=== PATIENT | female | born 1935 | race Caucasian/White ===

== ENCOUNTER 2016-05-01 10:56 | Emergency (ER) | payer MEDICARE ==
[~2016-05-01] VITALS: Ht 162.6 cm; Wt 120.0 kg
[~2016-05-01 10:56] MED LIST changes: -LORA-404 PO
[2016-05-01] MEDS ORDERED: meTOprolol 5 MG/5 ML (LOPRESSOR) VIAL IV ONE ×4 (10:57→12:15)
[2016-05-01] MEDS ORDERED: ONDANSETRON 2 MG/ML (Z0FRAN) 2 ML VIAL IV ONE (11:00)
[2016-05-01] MEDS ORDERED: SODIUM CHLORIDE FLUSH 10 ML SYR IV PRN (11:00)
[2016-05-01] MEDS ORDERED: SODIUM CHLORIDE FLUSH 3 ML SYR IV PRN (11:00)
[2016-05-01] MEDS ORDERED: morphine INJ 4 MG/ML 1 ML SYRINGE IV PRN (11:00)
[2016-05-01] MEDS ORDERED: SODIUM CHLORIDE 250 ML IV PRN (11:00)
--- OUTSIDE RECORDS SUMMARY | 2016-05-01 11:00 | XMS REPORT | Continuity of Care Document ---
Author Author [facility] Address Unknown Phone Unavailable Care Team Providers Care Floor Supervisor Name Role Phone PRESLEY CHONG MD PCP [phone] Insurance Providers Payer Name Policy Number Subscriber Name Relationship Medicare A And B [id number] Chery Richard 20 Self / Same As Patient [employer] [id number] Chery Richard 20 Self / Same As Patient Advance Directives Directive Response Recorded Date/Time Advanced Directives No 12/08/15 4:54pm Other offered for Technical Publications Writer to visit 12/08/15 4:54pm Chief Complaint and Reason for Visit Chief Complaint DX:CHF Reason for Visit Heart failure Laceration of hand Medication adverse effect Weakness Problems Active Problems Medical Problem Onset Date Status Acute on chronic systolic (congestive) heart failure Unknown Acute Acute on chronic systolic (congestive) heart failure Unknown Acute Atrial fibrillation Unknown Acute Atrial fibrillation Unknown Acute Atrial fibrillation with RVR Unknown Acute Congestive heart failure Unknown Acute Diabetes mellitus Unknown Chronic Diabetes mellitus, type II Unknown Acute Heart failure Unknown Acute Hypoglycemia 04/13/2014 Acute Hypokalemia Unknown Acute LLQ pain 03/05/2012 Laceration of hand Unknown Resolved Medication adverse effect 04/13/2014 Acute Weakness Unknown Acute Medications Current Home Medications Medication Dose Units Route Directions Days/Qty Instructions Start Date Cholecalciferol (Vitamin D3) 1,000 Unit 1,000 Unit ORAL Daily@1200 03/09/12 Vit A,C & E/Lutein/Minerals 1 Each 1 Tab ORAL Daily@1200 04/13/14 Propranolol Hcl 40 Mg 40 Mg ORAL Twice A Day for Essential Tremor Multivitamin 1 Each 1 Tab ORAL Daily@1200 04/13/14 Calcium Carbonate/Vitamin D3 1 Each 1 Cap ORAL Daily@1200 04/13/14 Polyethylene Glycol 17 Gm 17 Gm ORAL Daily as needed for Constipation 04/13/14 Aspirin 81 Mg 81 Mg ORAL Daily 04/13/14 Loratadine 10 Mg 10 Mg ORAL Daily 11/02/15 Fluticasone Propionate 16 Gm 2 Sprays Each Nostril Daily 11/02/15 Ranitidine Hcl 300 Mg 300 Mg ORAL Daily@1400 11/02/15 Losartan Potassium (Cozaar) 25 Mg 25 Mg ORAL Daily 12/08/15 Senna 1 Ea 1 Tab ORAL Daily 12/08/15 Furosemide 40 Mg 40 Mg ORAL Bid@0800,1400 12/08/15 Diltiazem Hcl 180 Mg 180 Mg ORAL Twice A Day 60 12/08/15 Vitamin B Complex 1 Each 1 Cap ORAL Daily 12/08/15 Magnesium Hydroxide 400 Mg/5 Ml 30 Ml ORAL Daily as needed for Constipation 12/08/15 Potassium Chloride 10 Meq 20 Meq ORAL Twice A Day With Meals Dabigatran 150 Mg 150 Mg ORAL Twice A Day 60 12/14/15 Insulin Glargine,Hum.rec.anlog (Lantus) 100 Units/1 Ml 22 Unit SUBCUTANEOUS Twice A Day 1 12/14/15 Insulin Lispro (Insulin Humalog) 100 Unit/1 Ml 8 Unit SUBCUTANEOUS Three Times Daily With Meals 1 12/14/15 Past Home Medications Medication Directions Ordered Status Fexofenadine Hcl 180 Mg Tablet, 180 Mg Oral Bedtime 03/05/12 Discontinued Propranolol Hcl 40 Mg Tablet, 40 Mg Oral Twice A Day 03/05/12 Discontinued Clonazepam 1 Mg Tablet, 1 Mg Oral Bedtime as needed 03/05/12 Discontinued Meloxicam 15 Mg Tablet, 15 Mg Oral Daily 03/05/12 Discontinued Metformin Hcl 1,000 Mg Tab, 1000 Mg Oral Daily@1700 03/05/12 Discontinued Metformin Hcl 500 Mg Tablet, 1000 Mg Oral Daily@1700 03/05/12 Discontinued Sitagliptin Phosphate 100 Mg Tablet, 100 Mg Oral Daily@1700 03/05/12 Discontinued Vit A,C & E/Lutein/Minerals 1 Each Tablet, 1 Each Oral Daily 03/05/12 Discontinued Calcium Carbonate 500 Mg Tablet, 1000 Mg Oral Twice A Day With Meals Discontinued Glipizide 10 Mg Tab.er.24, 10 Mg Oral Twice Daily Before Meals 03/05/12 Discontinued Lansoprazole 15 Mg Capsule.dr, 15 Mg Oral Daily 03/05/12 Discontinued Aspirin 81 Mg Tab.chew, 81 Mg Oral Daily 03/05/12 Discontinued Clopidogrel Bisulfate 75 Mg Tablet, 75 Mg Oral Mo,We,Fr 03/05/12 Discontinued Senna 1 Ea Tablet, 1 Ea Oral Twice A Day 03/09/12 Discontinued Acetaminophen 325 Mg Tablet, 650 Mg Oral Every 4HRS as needed 03/09/12 Discontinued Insulin Glargine,Hum.rec.anlog 100 Unit/1 Ml Insuln.pen, 25 Unit Sub-Q Twice A Day 03/09/12 Discontinued Insulin Lispro 100 Unit/1 Ml Insuln.pen, 15 Unit Sub-Q Three Times A Day 08/04 Discontinued Loratadine 10 Mg Tablet, 10 Mg Oral Daily 03/09/12 Discontinued Insulin Aspart 100 Unit/1 Ml Insuln.pen, 15 Unit Sub-Q Three Times Daily With Meals 03/09/12 Discontinued Losartan Potassium (Cozaar) 25 Mg Tablet, 25 Mg Oral Daily 04/13/14 Discontinued Insulin Detemir (Insulin Levemir) 100 Unit/1 Ml Vial, 100 Unit Sub-Q Twice A Day 04/13/14 Discontinued Insulin Detemir (Insulin Levemir) 100 Unit/1 Ml Vial, 25 Unit Sub-Q Twice A Day 04/13/14 Discontinued Insulin Determir 1 Unit/0.01 Ml Soln, 25 Unit Subcutaneous Bedtime 04/13/14 Discontinued Insulin Aspart 100 Unit/1 Ml Vial, 5 Unit Sub-Q Three Times Daily With Meals 04/13/14 Discontinued Insulin Aspart 100 Unit/1 Ml Insuln.pen, 15 Unit Sub-Q Three Times Daily With Meals 11/02/15 Discontinued Guaifenesin 600 Mg Tablet.er, 600 Mg Oral Twice A Day as needed for Constipation 11/02/15 Discontinued Insulin Glargine,Hum.rec.anlog 100 Unit/1 Ml Insuln.pen, 25 Unit Subcutaneous Twice A Day 11/02/15 Discontinued Acetaminophen 325 Mg Tablet, 650 Mg Oral Every 6 Hours as needed for Pain Discontinued Dabigatran 150 Mg Capsule, 150 Mg Oral Twice A Day 11/06/15 Discontinued Diltiazem Hcl (Dilacor Xr) 180 Mg Cap.er.24h, 180 Mg Oral Daily 11/06/15 Discontinued Potassium Chloride 10 Meq Capsule.er, 10 Meq Oral Twice A Day With Meals Discontinued Calcium Carbonate 300 Mg Tab.chew, 600 Mg Oral Every 1 Hour as needed for Dyspepsia 11/06/15 Discontinued Simethicone (Mylicon) 80 Mg Tab.chew, 80 Mg Oral Four Times Daily as needed for Gas/Bloating 11/06/15 Discontinued Docusate Sodium 100 Mg Capsule, 100 Mg Oral Twice A Day as needed for Constipation 11/06/15 Discontinued Magnesium Hydroxide 400 Mg/5 Ml Oral.susp, 30 Ml Oral Twice A Day as needed for Constipation 11/06/15 Discontinued Insulin Glargine,Hum.rec.anlog (Lantus) 100 Units/1 Ml Vial, 30 Unit Subcutaneous Bedtime 11/06/15 Discontinued Insulin Lispro (Insulin Humalog) 100 Unit/1 Ml Vial, 10 Unit Subcutaneous Three Times Daily With Meals 11/06/15 Discontinued Furosemide 40 Mg Tablet, 40 Mg Oral Daily 11/06/15 Discontinued Mupirocin (Bactroban Ointment) 22 Gm Oint...g., 1 Applic Topical Daily Discontinued Losartan Potassium (Cozaar) 50 Mg Tablet, 0.5 Tab Oral Daily 12/08/15 Discontinued Insulin Aspart 100 Unit/1 Ml Insuln.pen, 15 Unit Sub-Q Three Times Daily With Meals 12/08/15 Discontinued Clopidogrel Bisulfate (Plavix) 75 Mg Tablet, 75 Mg Oral Daily 12/08/15 Discontinued Insulin Glargine,Hum.rec.anlog 100 Unit/1 Ml Vial, 25 Unit Subcutaneous Twice A Day 12/08/15 Discontinued Guaifenesin 600 Mg Tablet.er, 1200 Mg Oral Twice A Day 12/08/15 Discontinued Lansoprazole 30 Mg Capsule.dr, 30 Mg Oral Daily@1400 12/08/15 Discontinued Social History Social History Problem Response Recorded Date/Time Onset Date Status Exposure to occupational hazards No 12/08/2015 4:54pm Query Response Start Date Stop Date Smoking Status Never smoker Hospital Discharge Instructions Patient's Instructions Instructions Instructions You were admitted to the hospital for fluid overload and shortness of breath. You were placed back on fluid restrictions and a low sodium diet. You were also given diuretics. Your lost a lot of your excess fluid. You are being discharged on your home dose of furosemide/lasix, but you will need to continue with your fluid restriction and a low sodium diet. Your insulin dosing has been changed, your lanzoprazole has beens stopped. Your guaifenesin has been stopped. You have been started on dabigatran. There are samples of this at Dr. Chong's office if you need them. You are being sent home with home health to provide physical therapy, daily weights, CHF education, diet education and some help with medications. You have an appointment with Dr. Chong on Monday12.18.15 at 11am. Discharge Diet: Fluid restricted (Restrict to 1600ml/day), Salt (sodium) restricted Discharge Plan of Care Discharge Plan of Care #1 Problem: Low Salt Diet Goal: Limit salt intake Instructions for meeting goal: Please limit sodium and continue on a fluid restriction. Plan of Care Discharge Date 12/14/15 4:55pm Disposition 01 HOME OR SELF-CARE Prescriptions See Medication Section Referrals Dr. Chong ([facility]) - 12/18/15 Bautista Coronado (Home Health Services) - 12/15/15 Bautista Coronado (Physical Therapy Services) - Care Plan and Goals See Discharge Instructions Section Functional Status Query Response Date Recorded Activity Chair December 14, 2015 4:02pm Assistance Required Assistance of one December 11, 2015 3:00pm Level of Conscious Alert Oriented x4 December 14, 2015 8:43am Movement Moves extremities Weakness December 14, 2015 8:43am Allergies, Adverse Reactions, Alerts Allergen Type Severity Reaction Status Last Updated Sulfa (Sulfonamide Antibiotics) Allergy Unknown Active 11/08/15 Warfarin Allergy 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 Immunizations Name Given Type Status Date Pneumonia Vaccine Received if Current 03/07/12 Historical Historical Date Influenza Vaccine Received if Current 03/05/14 Historical Historical Vital Signs Acute Vital Signs Vital Response Date/Time Temperature (Fahrenheit) 98.0 12/14/2015 4:02pm Pulse 65 bpm 12/14/2015 4:02pm Respirations 20 12/14/2015 4:02pm Height 5 ft 4 in Weight 276 lb Body Mass Index 47.0 kg/m^2 Results Laboratory Results Test Name Result Units Flags Reference Collection Date/Time Result Date/ Time Comments Sodium Level 145 mmol/L 135-150 11/17/2015 3:41pm 11/17/2015 4:51pm Potassium Level 4.5 mmol/L 3.5-5.1 11/17/2015 3:41pm 11/17/2015 4:51pm Chloride Level 102 mmol/L 98-108 11/17/2015 3:41pm 11/17/2015 4:51pm Carbon Dioxide Level 28 mmol/L 22-29 11/17/2015 3:41pm 11/17/2015 4: 51pm Anion Gap 19.8 MEQ/L H 3-15 11/17/2015 3:41pm 11/17/2015 4:51pm Blood Urea Nitrogen 35 mg/dL # H 7-18 11/17/2015 3:41pm 11/17/2015 4: 51pm Creatinine 1.15 mg/dL 0.6-1.2 11/17/2015 3:41pm 11/17/2015 4:51pm BUN/Creatinine Ratio 30 H 10-20 11/17/2015 3:41pm 11/17/2015 4:51pm Estimat Glomerular Filtration Rate 55.2 11/17/2015 3:41pm 2015 4:51pm Estimated GFR (Non- 45.6 11/17/2015 3:41pm 2015 4:51pm Glucose Level 79 mg/dL # 70-110 11/17/2015 3:41pm 11/17/2015 4:51pm Calculated Osmolality 286 mosm/L 280-300 11/17/2015 3:41pm 11/17/2015 4 :51pm Calcium Level 10.1 mg/dL 8.8-10.8 11/17/2015 3:41pm 11/17/2015 4:51pm Calcium/Ionized Calcium Ratio 4.5 mg/dL 3.8-4.6 11/17/2015 3:41pm 11/16 4:51pm Magnesium Level 2.1 mg/dL 1.6-2.3 11/17/2015 3:41pm 11/17/2015 4:51pm Total Bilirubin 0.4 mg/dL 0.1-1.0 11/17/2015 3:41pm 11/17/2015 4:51pm Alkaline Phosphatase 93 U/L 38-126 11/17/2015 3:41pm 11/17/2015 4:51pm Aspartate Amino Transf (AST/SGOT) 20 U/L 15-37 11/17/2015 3:41pm 2015 4:51pm Alanine Aminotransferase (ALT/SGPT) 20 U/L L 30-65 11/17/2015 3:41pm 4:51pm GH-Djv-K-Type Natriuretic Peptide 1060 pg/mL H 0-450 11/17/2015 3:41pm 11/17/2015 4:51pm <300 ng/mL - HF unlikely Age <50 years, NT-proBNP >450 pg/mL - HF Likely Age 50-75 yrs, NT-proBNP >900 pg/mL - HF Likely Age >75 yrs, NT-proBNP >1800 - HF likely Total Protein 6.9 g/dL 6.4-8.5 11/17/2015 3:41pm 11/17/2015 4:51pm Albumin 3.9 g/dL 3.4-5.0 11/17/2015 3:41pm 11/17/2015 4:51pm Albumin/Globulin Ratio 1.300 1.1-1.8 11/17/2015 3:41pm 11/17/2015 4: 51pm Pending Laboratory Results Test Name Collection Date/Time Procedures Procedure Status Date Provider(s) ROUTINE VENIPUNCTURE Completed 11/17/15 CHEST X-RAY 2VW FRONTAL&LATL Completed 11/17/15 COMPREHEN METABOLIC PANEL Completed 11/17/15 ASSAY OF MAGNESIUM Completed 11/17/15 ASSAY OF NATRIURETIC PEPTIDE Completed 11/17/15 PULMONARY STRESS TEST/SIMPLE Completed 11/17/15 LOWER EXTREMITY STUDY Completed 12/07/15 Encounters Encounter Location Arrival/Admit Date Discharge/Depart Date Attending Provider Discharged Inpatient [facility] 12/08/15 3:05pm 12/14/15 4:55pm ELIN TURNER MD Registered Clinic [facility] 12/07/15 12:58pm PRESLEY CHONG MD Registered Clinic [facility] 11/17/15 3:34pm PRESLEY CHONG MD Recent Diagnosis Heart failure Laceration of hand Medication adverse effect Weakness
[2016-05-01 11:11] LABS: BASOPHILS % (AUTO) 0 % (0-2); EOSINOPHILS # (AUTO) 0.1 10^3uL; EOSINOPHILS % (AUTO) 1 % (0-4); MEAN CORPUSCULAR VOLUME 88 FL (80-100); MONOCYTES # (AUTO) 0.8 X10^3; MONOCYTES % (AUTO) 6 % (3-11); NEUTROPHILS # (AUTO) 9.2 X10^3; NEUTROPHILS % (AUTO) 76 % (51-67); PLATELET COUNT 280 10^3uL (150-450); WHITE BLOOD COUNT 12.13 10^3uL (4.0-11.0)
[2016-05-01 11:13] LABS: MEAN CORPUSCULAR HEMOGLOBIN 26.9 PG (26.0-34.0); MEAN CORPUSCULAR HGB CONC 30.6 g/dL (31.0-37.0)
[2016-05-01 11:18] LABS: ALBUMIN 3.7 g/dL (3.4-5.0); ALKALINE PHOSPHATASE 141 U/L (38-126); ANION GAP 12.6 MEQ/L (3-15); BUN/CREATININE RATIO 20 (10-20); CALCULATED IONIZED CALCIUM 3.9 mg/dL (3.8-4.6); MAGNESIUM* 2.2 mg/dL (1.6-2.3); TOTAL PROTEIN 7.7 g/dL (6.4-8.5)
[2016-05-01 11:23] LABS: CREATINE KINASE < 20 U/L (30-135)
--- NOTE | 2016-05-01 11:38 | NUR ---
Nitroglycerin not administered due to imiprovement of chest pain and possible anterior infarct. Patient is breathing better now at 20-26/ minute rate. Weaned off of 10 liters of oxygen to 3 liters. Patient uses 3 liters at home. Maintaining sat of 93% per simple mask.
[2016-05-01] MEDS ORDERED: LORA-404 PO (12:07)
[2016-05-01] MEDS ORDERED: FRSM40T PO (12:07)
[2016-05-01] MEDS ORDERED: INSU100V2 SC (12:07)
[2016-05-01] MEDS: NITROGLYCERIN SUBLINGUAL 0.4 MG (NITROQUICK) TABLET SL PRN ×2 (12:09→12:20)
--- NOTE | 2016-05-01 12:15 | Diagnostic Imaging Report ---
INDICATION: Dyspnea and chest pain Comparison is made to study of 04/11/2016. There is suboptimal inspiration. There is generalized cardiomegaly. No pulmonary venous congestion persists. There has been an increase in overall bilateral airspace disease with density greatest in the left parahilar region. No pneumothorax noted. Internal cardiac defibrillator device remains in place. IMPRESSION: Diffuse bilateral airspace disease which likely related to congestive heart failure and edema. Area of increased density is also seen in parahilar region which may represent superimposed pneumonia. Dictated by: Dictated on workstation # [id number]
--- NOTE | 2016-05-01 12:43 | NUR ---
Chest pain is 5/10 following NTG administration x 3:unchanged. Blood pressure is 77/38. NS 250 bolus given.
--- NOTE | 2016-05-01 12:46 | NUR ---
Blood pressure is 114/82 on right wrist.
[2016-05-01] MEDS ORDERED: DILTIAZEM IV FOR DRIP 125 MG in SODIUM CHLORIDE 100 ML IV PRN (12:50)
[2016-05-01] MEDS ORDERED: fentaNYL 100 MCG/2 ML VIAL IV ONE (13:05)
[2016-05-01 13:42] VITALS: BP 114/68
== END 2016-05-01 13:45 | disposition short-term general hospital (02) ==
LOC: EDBD 10:56 → EDUNIT# 10:56 → ED 10:56
DX: I48.91 Unspecified atrial fibrillation (principal); R07.9 Chest pain, unspecified
CPT/HCPCS: 36415; 71010; 80053; 82550; 82553; 83735; 83880; 84484; 85025; 85610; 85730; 93005; 96374; 96375; 96376; 99285; A9270; J2405; J3010; J7050; 93010; 99291

== ENCOUNTER → 2016-05-01 | Outpatient (CLI) | payer MEDICARE ==
[~2016-05-01] MED LIST: ACET325T38 PO; ASP81CT PO; ASPI-586 PO; CALC-697 PO; CALC300T10 PO; CALC500T55 PO; CHOL100061 PO; CLON1TAB PO; CLOP75TA3 PO; CLPD75T PO; DABI150C PO; DILT180C54 PO; DLT180CCR PO; DOCU100C8 PO; FEXO180T PO; FLUT16SP NSEACH; FRSM40T PO; FURO-124 PO; GLIP5TAB21 PO; GUAI600T3 PO; INSASP1U SQ; INSU100I14 SQ; INSU100I23 SQ; INSU100V2 SC; INSU100V32 SC; INSU100V5 SQ; INSU100V8 SC; LANS15CA16 PO; LANS30CA14 PO; LANTUS SOL100 UNIT/1 SC; LANTUS SOL100 UNIT/1 SQ; LEVEMIR (P10 UNIT/0. SC; LORA-404 PO; LORA10TA7 PO; LRT10T PO; LSRT50T PO; MAGN400O7 PO; MELO15TA14 PO; METF500T PO; MIRALAX 17 GM P17 GM PO; MPR22TI TOP; MULT-954 PO; NFLOSA25TA PO; NFMET1000 PO; OXYGEN; POTA10CA2 PO; POTA10CA43 PO; PROP40TA5 PO; RANI300T6 PO; SENN-115 PO; SITA100T PO; SMT80CT PO; VIT1TABL26 PO; VITA1CAP PO
== END ==
LOC: EMS 10:35
PROVIDERS: ATTEND Emergency Medicine
DX: R07.89 Other chest pain (principal)